=== PATIENT | female | born 1985 | race Asian ===

== ENCOUNTER 2017-08-22 08:00 | Inpatient (IN) | payer SELFPAY ==
[~2017-08-22] VITALS: Ht 165 cm; Wt 73.5 kg
[2017-08-22] MEDS ORDERED: PREN-380 PO (08:17)
[2017-08-22] MEDS ORDERED: LACTATED RINGERS 1,000 ML IV SCH (08:17)
[2017-08-22] MEDS ORDERED: NALBUPHINE HYDROCHLORIDE 10 MG/ML VIAL IVP PRN (08:20)
[2017-08-22] MEDS ORDERED: CARBOPROST 250 MCG/ML AMP IM PRN (08:20)
[2017-08-22] MEDS ORDERED: OXYTOCIN 20 UNITS in LACTATED RINGERS 1,000 ML IV SCH ×2 (08:20→17:29)
[2017-08-22] MEDS ORDERED: METHYLERGONOVINE 0.2 MG/ML AMP IM PRN (08:20)
[2017-08-22] MEDS ORDERED: PROMETHAZINE 25 MG/ML VIAL IVP PRN (08:20)
[2017-08-22] MEDS ORDERED: AMPICILLIN 2,000 MG VIAL ONE (08:35)
[2017-08-22] MEDS ORDERED: AMPICILLIN 2,000 MG in NACL 0.9% MINI-BAG PLUS 100 ML IV SCH (08:57)
[2017-08-22] MEDS ORDERED: BUPIVACAINE 0.125%/NS PREMIX 250 ML ONE (09:31)
[2017-08-22] MEDS ORDERED: BUPIVACAINE 0.125%/NS PREMIX 250 ML EPI SCH ×2 (10:00)
[2017-08-22 10:03] LABS: BASOPHILS % (AUTO) 0.3 % (0.0-2.0); EOSINOPHILS # (AUTO) 0.1 K/uL (0-0.4); EOSINOPHILS % (AUTO) 0.8 % (0.0-4.0); HEMATOCRIT 33.8 % (36-48); HEMOGLOBIN 11.5 g/dL (12.0-16.0); LYMPHOCYTES # (AUTO) 1.8 K/uL (2.5-16.5); LYMPHOCYTES % (AUTO) 22.8 % (20.5-51.1); MEAN CORPUSCULAR HEMOGLOBIN 31 pg (27-31); MEAN CORPUSCULAR HGB CONC 34 g/dL (33-37); MONOCYTES # (AUTO) 0.5 K/uL (0.8-1.0); MONOCYTES % (AUTO) 6.6 % (1.7-9.3); NEUTROPHILS # (AUTO) 5.6 K/uL (1.8-7.7); NEUTROPHILS % (AUTO) 69.5 % (42.2-75.2); PLATELET COUNT (AUTO) 140 K/uL (140-450); RED BLOOD CELL COUNT(AUTO) 3.68 MIL/uL (4.20-5.40); RED CELL DISTRIBUTION WIDTH 14.4 % (11.6-13.7); WHITE BLOOD COUNT (AUTO) 8.1 K/uL (4.8-10.8)
[2017-08-22 10:07] LABS: APPEARANCE,URINE CLEAR (CLEAR); BILIRUBIN,URINE NEGATIVE (NEGATIVE); BLOOD, URINE 1+ (NEGATIVE); COLOR,URINE YELLOW (YELLOW); LEUKOCYTE ESTERASE ,URINE NEGATIVE (NEGATIVE); NITRITE, URINE NEGATIVE (NEGATIVE); UGLUCOSE NEGATIVE (NEGATIVE)
[2017-08-22 10:17] LABS: RBC,URINE 11-20 (MOD) /HPF (0-5); WBC,URINE 0-5 (RARE) /HPF (0-5)
[2017-08-22 10:19] LABS: ANION GAP 13.7 (8-16); CARBON DIOXIDE 23.1 mmol/L (21-32); CREATININE 0.4 mg/dL (0.6-1.3); POTASSIUM 3.8 mmol/L (3.5-5.1)
[2017-08-22 10:32] LABS: ALBUMIN 2.3 g/dL (3.4-5.0); TOTAL BILIRUBIN 0.2 mg/dL (0.0-1.0)
[2017-08-22 10:40] VITALS: BP 114/58
--- NOTE | 2017-08-22 11:29 | NUR ---
PATIENT HAS BEEN SCREENED AND CATEGORIZED LOW NUTRITION RISK. PATIENT WILL BE SEEN WITHIN 7 DAYS OF ADMISSION. 08/29/17 JEANNINE ESQUIVEL MS, RDN
[2017-08-22] MEDS ORDERED: AMPICILLIN 1,000 MG VIAL ONE ×2 (12:07→16:02)
[2017-08-22] MEDS: AMPICILLIN 1,000 MG in NACL 0.9% MINI-BAG PLUS 50 ML IV SCH ×2 (12:09→16:13)
[2017-08-22] MEDS ORDERED: LIDOCAINE 2% 1000 MG/50 ML VIAL INJ ONE (14:51)
[2017-08-22] MEDS ORDERED: OXYTOCIN 10 UNITS/ML VIAL ONE (14:51)
[2017-08-22] MEDS ORDERED: MEASLES, MUMPS, AND RUBELLA 1 VIAL SQVAC PRN (17:30)
[2017-08-22] MEDS ORDERED: IBUPROFEN 600 MG TAB PO PRN (17:30)
[2017-08-22] MEDS ORDERED: ACETAMINOPHEN 325 MG TAB PO PRN (17:30)
[2017-08-22] MEDS ORDERED: BENZOCAINE/MENTHOL 20%-0.5% 60 GM CAN TP PRN (17:30)
[2017-08-22] MEDS ORDERED: INFLUENZA VIRUS VACCINE QUAD 0.5 ML SYR IMVAC SCH (22:00)
[2017-08-23 07:19] LABS: BASOPHILS % (AUTO) 0.2 % (0.0-2.0); EOSINOPHILS % (AUTO) 0.3 % (0.0-4.0); HEMATOCRIT 35.4 % (36-48); HEMOGLOBIN 11.8 g/dL (12.0-16.0); LYMPHOCYTES # (AUTO) 2.5 K/uL (2.5-16.5); MEAN CORPUSCULAR HEMOGLOBIN 31 pg (27-31); MEAN CORPUSCULAR HGB CONC 34 g/dL (33-37); MEAN CORPUSCULAR VOLUME 92.5 fL (80-94); MONOCYTES # (AUTO) 0.6 K/uL (0.8-1.0); MONOCYTES % (AUTO) 4.5 % (1.7-9.3); NEUTROPHILS # (AUTO) 10.1 K/uL (1.8-7.7); PLATELET COUNT (AUTO) 130 K/uL (140-450); RED BLOOD CELL COUNT(AUTO) 3.82 MIL/uL (4.20-5.40); RED CELL DISTRIBUTION WIDTH 14.3 % (11.6-13.7); WHITE BLOOD COUNT (AUTO) 13.2 K/uL (4.8-10.8)
[2017-08-23] MEDS: oxyCODONE/APAP 5/325 MG 1 TAB TAB PO PRN ×2 (13:51→20:38)
[2017-08-24] MEDS: BISACODYL 5 MG TABEC PO PRN ×2 (02:43→07:53)
[2017-08-24] MEDS: oxyCODONE/APAP 5/325 MG 1 TAB TAB PO PRN ×2 (02:43→07:53)
== END 2017-08-24 16:45 | disposition home or self-care (01) | DRG 775 ==
LOC: MLD 08:00 → MFCC 21:48
PROVIDERS: ADMIT Obstetrics & Gynecology; ATTEND Obstetrics & Gynecology
PROC: 10E0XZZ Delivery of Products of Conception, External Approach (ICD-10-PCS; principal; 2017-08-22)
PROC: 00HU33Z Insertion of Infusion Device into Spinal Canal, Percutaneous Approach (ICD-10-PCS; 2017-08-22)
PROC: 3E0R3BZ Introduction of Anesthetic Agent into Spinal Canal, Percutaneous Approach (ICD-10-PCS; 2017-08-22)
DX: O69.81X0 Labor and delivery complicated by cord around neck, without compression, not applicable or unspecified (principal); Z28.21 Immunization not carried out because of patient refusal; Z37.0 Single live birth; Z3A.38 38 weeks gestation of pregnancy
CPT/HCPCS: 36415; 59409; 80053; 81001; 85025; 86592; 86886; 86900; 86901; J0290; J2001; J2590; J3490; J7120